=== PATIENT | female | born 1990 | race Caucasian/White ===

== ENCOUNTER 2019-06-08 10:25 | Emergency (ER) | payer OTHER ==
[2019-06-08] MEDS: BACITRACIN 0.9 GM OINT TOP (10:51)
[2019-06-08] MEDS: DIPHTH/TET/ACEL PERTUSS (ADULT) 0.5 ML VIAL IM* (10:52)
== END 2019-06-08 11:35 | disposition left against medical advice (07) ==
LOC: FTE 10:25
DX: S01.21XA Laceration without foreign body of nose, initial encounter (principal); S01.511A Laceration without foreign body of lip, initial encounter; W01.198A Fall on same level from slipping, tripping and stumbling with subsequent striking against other object, initial encounter; Y92.9 Unspecified place or not applicable; Z23 Encounter for immunization
CPT/HCPCS: 90471; 90715; 99283-25